=== PATIENT | female | born 1945 | race Caucasian/White ===

== ENCOUNTER 2022-11-23 07:07 | Emergency (ER) | payer MEDICARE, OTHER, SELFPAY ==
[2022-11-23] VITALS (11 sets, daily range): BP systolic 144–181; BP diastolic 68–88; PULSE 61–85; RESP 14–20; TEMP 36.9; O2SAT 98–100
--- NOTE | ~2022-11-23 | XR_ITS ---
Clinical Indication: Shortness of breath PA and lateral views of the chest: Comparison: None Findings: The lungs are clear, without evidence of focal consolidation or pleural effusion. COPD zuri eduar noted. Cardiomediastinal silhouette is within normal limits. Bones and soft tissues are unremarka ble. Impression: COPD. Clear lungs. Reviewed, dictated and finalized at location . Impression: COPD. Clear lungs.
--- NOTE | 2022-11-23 07:17 | ECG_ITS ---
Measurements Intervals [place] Rate: 64 P: 77 HI: 204 QRS: 81 QRSD: 86 T: 76 QT: 380 QTc: 394 Interpretive Statements SINUS RHYTHM WITH OCCASIONAL ECTOPIC PREMATURE COMPLEXES ABNORMAL ECG NO PREVIOUS ECG AVAILABLE FOR COMPARISON Electronically Signed On 11-23-2022 10:21:01 CDT by Elmo Rivas M.D.
--- NOTE | 2022-11-23 07:17 | ED.GENADULT ---
HPI - General Adult General Chief complaint: Asthma Stated complaint: Asthma Source: patient History of Present Illness HPI narrative: 77-year-old female presenting with shortness of breath and chest pain. Patient states her symptoms started last night. She describes her symptoms as intermittent right-sided chest pain as well as midsternal burning . She also states she has asthma And believesi she is in an asthma flare. She denies any recent illnesses or trauma. Onset (ago): hour(s) Location: chest Quality: burning and sharp Related Data Home Medications Medication Instructions Recorded Confirmed Serevent 50 mcg inhalation BID 11/23/22 11/23/22 Ventolin HFA 90 mcg inhalation DIRECTED 11/23/22 11/23/22 cefuroxime axetil 500 mg tablet 500 mg PO DAILY 11/23/22 11/23/22 methylprednisolone 4 mg PO DIRECTED 11/23/22 11/23/22 Allergies Allergy/AdvReac Type Severity Reaction Status Date / Time acetaminophen [From Vicodin] Allergy Unknown Verified 11/23/22 07:25 amoxicillin [From Augmentin] Allergy Unknown Verified 11/23/22 07:25 cephalexin [From Keflex] Allergy Unknown Verified 11/23/22 07:26 clavulanic acid Allergy Unknown Verified 11/23/22 07:25 [From Augmentin] erythromycin base Allergy Unknown Verified 11/23/22 07:25 fluticasone Allergy Unknown Verified 11/23/22 07:27 [From Advair Diskus] hydrocodone [From Vicodin] Allergy Unknown Verified 11/23/22 07:25 meperidine [From Demerol] Allergy Unknown Verified 11/23/22 07:26 salmeterol Allergy Unknown Verified 11/23/22 07:27 [From Advair Diskus] tramadol Allergy Unknown Verified 11/23/22 07:25 Exam Const: General: healthy appearing and no acute distress HENMT: Head: normal to inspection Face/Nose/Sinus: Normal external nose present Mouth: Yes lip normal Eyes: Conjunctivae: conjunctivae normal EOM: EOMs intact bilaterally Neck: Neck: normal visual inspection and no meningeal signs Chest: Chest palpation & inspection: normal inspection of the chest and no tenderness Resp: Effort & Inspection: normal respiratory effort Auscultation: clear to auscultation bilaterally Other: clear lung sounds to auscultation. No increased work of breathing. Satting well in room air. Cardio: Rate: regular rate Rhythm: regular rhythm GI: GI Palp: No Guarding due to palpation present (GI) and No Rigid due to palpation Back/Spine/Pelvis: Back: no CVA tenderness Cervical Spine: No collar present Skin: General skin exam: normal color and no pallor Neuro: General: patient oriented x3 Speech: normal speech Extrem: General: normal to inspection and no clubbing, cyanosis or edema Psych: Mental Status: mental status grossly normal Affect: normal affect Course Vital Signs Vital signs: Vital Signs Temperature 36.9 C 11/23/22 07:10 Pulse Rate 67 11/23/22 07:10 Respiratory Rate 16 11/23/22 07:10 Blood Pressure 181/68 H 11/23/22 07:10 Pulse Oximetry 100 11/23/22 07:10 Oxygen Delivery Room Air 11/23/22 07:10 Temperature 36.9 C 11/23/22 07:10 Pulse Rate 64 11/23/22 07:59 Respiratory Rate 14 11/23/22 07:59 Blood Pressure 181/68 H 11/23/22 07:10 Pulse Oximetry 100 11/23/22 07:59 Oxygen Delivery Room Air 11/23/22 07:10 Medical Decision Making MDM Narrative Medical decision making narrative: Differential diagnosis includes but not limited to ACS versus dissection versus pneumothorax versus pneumonia versus asthma exacerbation versus P versus GERD. Will evaluate with labs and imaging. Will administer nebulized albuterol and IV Pepcid. Reassuring workup. Negative troponin. Negative D-dimer. No emergent laboratory derangements. Mild dehydration on lab work. The patient did receive IV fluids. Upon my review, no acute pathological findings on chest x-ray. my interpretation of EKG: Sinus rhythm at a rate of 64 beats per minute. Normal axis with appropriate intervals. No ST segment elevation
[2022-11-23 07:33] LABS: Basophils Absolute Auto 0.02 K/mm3 (0.00-0.10); Basophils Percent Auto 0.5 % (0.0-1.0); Hematocrit 35.6 % (35.0-42.0); Hemoglobin 12.1 g/dL (11.7-13.8); Immature Granulocyte Absolute 0.02 K/mm3 (0.00-0.00); Immature Granulocyte Percent A 0.5 % (0.0-0.0); Lymphocytes Absolute Auto 1.09 K/mm3 (1.10-4.50); Lymphocytes Percent Auto 27.2 % (18.0-42.0); Mean Corpuscular Hemoglobin 31.6 pg (27.0-31.0); Mean Platelet Volume 10.6 fl (9.2-11.8); Monocytes Absolute Auto 0.47 K/mm3 (0.10-0.90); Monocytes Percent Auto 11.7 % (2.0-11.0); Neutrophils Absolute Auto 2.2 K/mm3 (1.7-7.2); Neutrophils Percent Auto 55.1 % (50.0-70.0); Platelet Count Result 211 K/mm3 (150-420); Red Blood Count 3.83 M/mm3 (4.20-5.40); Red Cell Distribution Width 12.2 % (11.6-14.4)
[2022-11-23] MEDS: ALBUTEROL SULFATE NEB 2.5 MG/3 ML INH 5 MG INHALATION (07:56)
[2022-11-23 08:06] LABS: Alanine Aminotransferase 24 U/L (14-59); Albumin Level 3.7 g/dL (3.4-5.0); Alkaline Phosphatase 104 U/L (46-116); Anion Gap 10 mmol/L (8-16); Aspartate Amino Transferase 13 U/L (15-37); Bilirubin,Total 0.7 mg/dL (0.00-1.00); Blood Urea Nitrogen 25 mg/dL (7-18); Calcium 9.9 mg/dL (8.5-10.1); Carbon Dioxide 26 mmol/L (21-32); Chloride 106 mmol/L (98-108); Estimated CRCL calculation 38 ml/min; Estimated Glomerular Filt Rate 52; Glucose 95 mg/dL (70-99); Magnesium 2.2 mg/dL (1.8-2.4); Osmolality Calculated 298 mOsm/kg (285-295); Sodium 142 mmol/L (136-145); Total Protein 7.2 g/dL (6.4-8.2); Troponin I 7.1 ng/L (0.00-60.4)
[2022-11-23 08:06] LABS: D Dimer 0.19 mg/L (0.19-0.50)
[2022-11-23] MEDS: FAMOTIDINE 20 MG TABLET PO (08:06)
[2022-11-23 08:08] LABS: NT Pro B Type Natriuretic Pept 67 pg/mL (0-450)
[2022-11-23] MEDS: SODIUM CHLORIDE 0.9% IV 1,000 ML 999 ML IV CONT (08:21)
--- NOTE | 2022-11-23 08:28 | PC.NURSE ---
PT IS SITTING UP ON STRETCHER TALKING WITH FAMILY. PT REPORTS SHE IS COUGHING UP THICK WHITISH SPUTUM POST NEB TX. LUNGS CTA ON ASSESSMENT. PT DENIES ANY SOB AT THIS TIME. VSS PER MONITOR. IVF INFUSING ORDERED WITHOUT DIFFICULTY. NAD NOTED. WILL CONTINUE TO MONITOR.
== END 2022-11-23 09:07 | disposition home or self-care (01) ==
PROVIDERS: Emergency Provider Emergency Medicine; PCP Physician Assistant
DX: K21.9 Gastro-esophageal reflux disease without esophagitis (principal); E86.0 Dehydration; J45.909 Unspecified asthma, uncomplicated; Z79.899 Other long term (current) drug therapy
CPT/HCPCS: 36415; 71046; 80053; 83735; 83880; 84443; 84484; 85025; 85380; 93005; 94640; 99284; A9270; J7030

== ENCOUNTER 2023-01-05 07:08 | Emergency (ER) | payer MEDICARE, OTHER, SELFPAY ==
--- NOTE | ~2023-01-05 | CT_ITS ---
EXAMINATION: CT chest abdomen pelvis w con DATE: 01/05/2023 08:18 INDICATION: Chest and abdominal pain TECHNIQUE: Transaxial computed tomographic images of the chest, abdomen, and pelvis were obtained aft er the administration of 100 cc of Omnipaque 350 intravenous contrast. The dose-length product (DLP) was 277.86 mGy-cm. Automated exposure control and iterative reconstruction technique were employed. COMPARISON: None FINDINGS: CHEST CT: There is a 4 mm nodule of the right upper lobe. The lungs are free of acute opacities. No pleural eff usion or pneumothorax. No pathologically enlarged thoracic lymph nodes are identified. The heart size is normal. There is calcified coronary artery atherosclerosis. There is mild thoracic spondylosis. ABDOMEN/PELVIS CT: The liver is diffusely low in attenuation when compared with the spleen, consistent with hepatic stea tosis. The spleen, pancreas, gallbladder, and adrenal glands are normal. The left kidney is absent. T he right kidney is unremarkable. No pathologically enlarged abdominal or pelvic lymph nodes are ident ified. No free intraperitoneal gas or evidence of bowel obstruction. There is a small umbilical herni a containing fat. There is moderate lumbar spondylosis. IMPRESSION: 1. No CT correlate for the patient's symptoms. 2. 4 mm nodule of the right upper lobe. Consider follow-up low-dose chest CT in 12 months. Reviewed, dictated and finalized at location L.
[2023-01-05 07:18] VITALS: BP 172/79; PULSE 76; RESP 20; TEMP 37; O2SAT 100
--- NOTE | 2023-01-05 07:19 | ECG_ITS ---
Measurements Intervals [place] Rate: 70 P: 71 MS: 216 QRS: 77 QRSD: 85 T: 68 QT: 370 QTc: 402 Interpretive Statements SINUS RHYTHM WITH FIRST DEGREE AV BLOCK LEFT VENTRICULAR HYPERTROPHY AND ST-T CHANGE MINIMAL Q WAVES- ANTEROLAT/INF LEADS BASELINE ARTIFACT- I, II, III, AVR, AVL BORDERLINE ECG COMPARED TO ECG 11/23/2022 07:48:00 FIRST DEGREE AV BLOCK NOW PRESENT LEFT VENTRICULAR HYPERTROPHY NOW PRESENT Electronically Signed On 01-05-2023 8:00:33 CDT by Ray Adams D.O.
--- NOTE | 2023-01-05 07:21 | ED.ABDPAIN ---
HPI - Abdominal Pain General Chief Complaint: Chest Pain Stated Complaint: GERD Time Seen by Provider: 01/05/23 07:19 History of Present Illness HPI narrative: Pt presents with a feeling of acid reflux into chest for a couple of months and getting worse. Pt has not seen Gi and has been started on pepcid with no relief. Pt sasy she feels like her heart is punding in her chest and throat and feels like her esophagus is narrowing from the acid. Pt clifford seen her P)CP but not GO or cardiology. Related Data Home Medications Medication Instructions Recorded Confirmed Serevent 50 mcg inhalation BID 11/23/22 01/05/23 Ventolin HFA 90 mcg inhalation DIRECTED 11/23/22 01/05/23 cefuroxime axetil 500 mg tablet 500 mg PO DAILY 11/23/22 01/05/23 methylprednisolone 4 mg PO DIRECTED 11/23/22 01/05/23 Allergies Allergy/AdvReac Type Severity Reaction Status Date / Time acetaminophen [From Vicodin] Allergy Unknown Verified 01/05/23 07:22 amoxicillin [From Augmentin] Allergy Unknown Verified 01/05/23 07:22 cephalexin [From Keflex] Allergy Unknown Verified 01/05/23 07:22 clavulanic acid Allergy Unknown Verified 01/05/23 07:22 [From Augmentin] erythromycin base Allergy Unknown Verified 01/05/23 07:22 fluticasone Allergy Unknown Verified 01/05/23 07:22 [From Advair Diskus] hydrocodone [From Vicodin] Allergy Unknown Verified 01/05/23 07:22 meperidine [From Demerol] Allergy Unknown Verified 01/05/23 07:22 salmeterol Allergy Unknown Verified 01/05/23 07:22 [From Advair Diskus] tramadol Allergy Unknown Verified 01/05/23 07:22 Review of Systems Review of Systems: All systems reviewed & are unremarkable except as noted in HPI and below Exam Const: General: healthy appearing Nutritional Appearance: well nourished Orientation/consciousness: patient oriented x3 Limitations: no limitations HENMT: Mouth: Yes Normal oral and palatal mucosa present Throat: posterior oropharynx normal Neck: Neck: normal visual inspection, no lymphadenopathy and no meningeal signs Other: no bruit Resp: Effort & Inspection: normal respiratory effort Auscultation: clear to auscultation bilaterally Cardio: Rate: regular rate Rhythm: regular rhythm GI: GI Palp: Yes Soft to palpation and No Tenderness to palpation present (GI) Auscultation: normal bowel sounds Skin: General skin exam: normal color Rashes: no rashes Neuro: General: patient oriented x3, moves all extremities, no meningeal signs and no focal motor deficits Speech: normal speech Extrem: General: normal to inspection and no clubbing, cyanosis or edema Psych: Mental Status: mental status grossly normal Affect: normal affect Attitude: cooperative Course Vital Signs Vital signs: Vital Signs Temperature 98.6 F 01/05/23 07:18 Pulse Rate 76 01/05/23 07:18 Respiratory Rate 20 01/05/23 07:18 Blood Pressure 172/79 H 01/05/23 07:18 Pulse Oximetry 100 01/05/23 07:18 Temperature 98.6 F 01/05/23 07:18 Pulse Rate 76 01/05/23 07:18 Respiratory Rate 20 01/05/23 07:18 Blood Pressure 172/79 H 01/05/23 07:18 Pulse Oximetry 100 01/05/23 07:25 Oxygen Delivery Room Air 01/05/23 07:25 MDM - Abdominal Pain MDM Narrative Medical decision making narrative: Pt presents with GERD like symptoms but has not been scoped or seen GI. Will rule out cardiac and CT chest and abd pelvis to make sure there is nothing life threatening. Lab Data Attestation: I reviewed the patient's lab results. 01/05/23 07:28 01/05/23 07:28 Labs: Lab Results 01/05/23 Range/Units 07:28 WBC 4.2 L (4.8-10.8) K/mm3 RBC 3.87 L (4.20-5.40) M/mm3 Hgb 12.2 (11.7-13.8) g/dL Hct 36.3 (35.0-42.0) % MCV 93.8 (78.0-102.0) fL MCH 31.5 H (27.0-31.0) pg MCHC 33.6 (32.0-36.0) g/dL RDW 12.3 (11.6-14.4) % Plt Count 210 (150-420) K/mm3 MPV 11.2 (9.2-11.8) fl Immature Gran % (Auto) 0.2 H (0.0-0.0) % Neut
[2023-01-05 07:25] VITALS: O2SAT 100
[2023-01-05 07:33] LABS: Basophils Absolute Auto 0.03 K/mm3 (0.00-0.10); Basophils Percent Auto 0.7 % (0.0-1.0); Eosinophils Absolute Auto 0.16 K/mm3 (0.02-0.50); Eosinophils Percent Auto 3.8 % (1.0-6.0); Hematocrit 36.3 % (35.0-42.0); Hemoglobin 12.2 g/dL (11.7-13.8); Immature Granulocyte Absolute 0.01 K/mm3 (0.00-0.00); Immature Granulocyte Percent A 0.2 % (0.0-0.0); Lymphocytes Absolute Auto 0.93 K/mm3 (1.10-4.50); Lymphocytes Percent Auto 22.1 % (18.0-42.0); Mean Corpuscular HGB Conc 33.6 g/dL (32.0-36.0); Mean Corpuscular Hemoglobin 31.5 pg (27.0-31.0); Mean Corpuscular Volume 93.8 fL (78.0-102.0); Mean Platelet Volume 11.2 fl (9.2-11.8); Monocytes Absolute Auto 0.51 K/mm3 (0.10-0.90); Monocytes Percent Auto 12.1 % (2.0-11.0); Neutrophils Absolute Auto 2.6 K/mm3 (1.7-7.2); Neutrophils Percent Auto 61.1 % (50.0-70.0); Platelet Count Result 210 K/mm3 (150-420); Red Blood Count 3.87 M/mm3 (4.20-5.40); Red Cell Distribution Width 12.3 % (11.6-14.4); White Blood Count 4.2 K/mm3 (4.8-10.8)
[2023-01-05 07:53] LABS: Alanine Aminotransferase 15 U/L (14-59); Albumin Level 3.8 g/dL (3.4-5.0); Alkaline Phosphatase 95 U/L (46-116); Anion Gap 11 mmol/L (8-16); Aspartate Amino Transferase 13 U/L (15-37); Bilirubin,Total 0.7 mg/dL (0.00-1.00); Blood Urea Nitrogen 19 mg/dL (7-18); Calcium 9.9 mg/dL (8.5-10.1); Carbon Dioxide 25 mmol/L (21-32); Chloride 104 mmol/L (98-108); Estimated CRCL calculation 42 ml/min; Estimated Glomerular Filt Rate > 60; Glucose 99 mg/dL (70-99); Lipase 47 U/L (16-77); Osmolality Calculated 292 mOsm/kg (285-295); Sodium 140 mmol/L (136-145); Total Protein 7.3 g/dL (6.4-8.2); Troponin I 6.5 ng/L (0.00-60.4)
[2023-01-05 08:56] VITALS: BP 166/81; PULSE 79; RESP 14; O2SAT 98
== END 2023-01-05 09:05 | disposition home or self-care (01) ==
PROVIDERS: Emergency Provider Emergency Medicine; PCP Physician Assistant
DX: K21.9 Gastro-esophageal reflux disease without esophagitis (principal); Z79.899 Other long term (current) drug therapy
CPT/HCPCS: 36415; 71260; 74177; 80053; 83690; 84484; 85025; 93005; 99284; Q9967

== ENCOUNTER 2023-01-08 12:27 | Outpatient (CLI) | payer MEDICARE, SELFPAY ==
[2023-01-08 12:43] LABS: Basophils Absolute Auto 0.03 K/mm3 (0.00-0.10); Basophils Percent Auto 0.6 % (0.0-1.0); Eosinophils Absolute Auto 0.19 K/mm3 (0.02-0.50); Eosinophils Percent Auto 3.5 % (1.0-6.0); Hemoglobin 12.2 g/dL (11.7-13.8); Immature Granulocyte Absolute 0.01 K/mm3 (0.00-0.00); Immature Granulocyte Percent A 0.2 % (0.0-0.0); Lymphocytes Absolute Auto 1.13 K/mm3 (1.10-4.50); Lymphocytes Percent Auto 20.7 % (18.0-42.0); Mean Corpuscular Hemoglobin 31.2 pg (27.0-31.0); Mean Corpuscular Volume 94.6 fL (78.0-102.0); Mean Platelet Volume 10.8 fl (9.2-11.8); Monocytes Absolute Auto 0.58 K/mm3 (0.10-0.90); Monocytes Percent Auto 10.6 % (2.0-11.0); Neutrophils Absolute Auto 3.5 K/mm3 (1.7-7.2); Neutrophils Percent Auto 64.4 % (50.0-70.0); Platelet Count Result 222 K/mm3 (150-420); Red Blood Count 3.91 M/mm3 (4.20-5.40); Red Cell Distribution Width 12.2 % (11.6-14.4); White Blood Count 5.5 K/mm3 (4.8-10.8)
[2023-01-08 13:32] LABS: Alanine Aminotransferase 22 U/L (14-59); Albumin Level 3.9 g/dL (3.4-5.0); Alkaline Phosphatase 104 U/L (46-116); Anion Gap 11 mmol/L (8-16); Aspartate Amino Transferase 13 U/L (15-37); Bilirubin,Total 0.5 mg/dL (0.00-1.00); Blood Urea Nitrogen 23 mg/dL (7-18); Calcium 10.1 mg/dL (8.5-10.1); Carbon Dioxide 25 mmol/L (21-32); Chloride 105 mmol/L (98-108); Estimated Glomerular Filt Rate 52; Glucose 100 mg/dL (70-99); Osmolality Calculated 295 mOsm/kg (285-295); Potassium 4.3 mmol/L (3.5-5.1); Sodium 141 mmol/L (136-145); Total Protein 7.1 g/dL (6.4-8.2)
== END 2023-01-08 12:28 | disposition home or self-care (01) ==
LOC: CHSLAB 12:32
PROVIDERS: PCP Family Medicine; Visit Provider Family Medicine
DX: Z52.4 Kidney donor (principal); K21.00 Gastro-esophageal reflux disease with esophagitis, without bleeding
CPT/HCPCS: 36415; 80053; 85025

== ENCOUNTER 2025-02-16 10:33 | Outpatient (CLI) | payer MEDICARE, OTHER, SELFPAY ==
[2025-02-16 10:49] LABS: Hematocrit 34.3 % (35.0-42.0); Hemoglobin 11.3 g/dL (11.7-13.8); Immature Granulocyte Percent A 0.3 % (0.0-0.0); Lymphocytes Absolute Auto 1.09 K/mm3 (1.10-4.50); Mean Corpuscular HGB Conc 32.9 g/dL (32-36); Mean Corpuscular Hemoglobin 31.6 pg (27.0-31.0); Mean Corpuscular Volume 95.8 fL (78.0-102.0); Nucleated Red Blood Cells Absolute Auto 0.00 K/mm3 (0.00-0.00); Nucleated Red Blood Cells Perc 0.0 % (0-0.0); Platelet Count Result 245 K/mm3 (150-420); Red Blood Count 3.58 M/mm3 (4.20-5.40); White Blood Count 6.1 K/mm3 (4.8-10.8)
--- OUTSIDE RECORDS SUMMARY | 2025-02-16 11:05 | XMS_ITS | Data Portability ---
Author Organization NOAH CLINTDrayl Gaffney Address [address] [facility] [place] [address] Care Team Providers Care Charging Plug Placer Name Role Phone BRENNAN CARLIN Primary Care Provider [phone] Assessment No assessment recorded. Plan of Treatment Reminders Order Date Submit Date Provider Last Modified By Organization Details Last Modified Time Details Appointments None recorded. Lab CMP, serum or plasma 2022 023 J[facility], [address] [facility], [facility] [address], [place], [address], 3 06:13:29 lipid panel, serum 2022 023 [facility], [address] [facility], [facility] [address], [place], [address], 3 06:13:29 HbA1c (hemoglobi n A1c), blood 2022 023 JADON In-Office Order, Internal Use Only DO Not Attach Compendium DO Not Attach Compendium, Do Not Delete/merge, [id number] 3 10:51:10 CBC 2021 022 J[facility], [address], [address], [place], [address], 2 09:12:18 CMP, serum or plasma 2021 022 J[facility], [address], [address], [place], [address], 2 09:12:17 lipid panel, serum 2021 022 [facility], [address], [address], [place], [address], 2 09:12:18 CMP, serum or plasma 2020 021 [facility], [address] [facility], [address], [place], [address], 1 06:14:02 CBC 2020 021 [facility], [address] [facility] [address], [place], [address], 1 06:14:03 TSH, serum or plasma 2020 021 [facility], [address] [facility], [address], [place], [address], 1 06:14:05 lipid panel, serum 2020 021 J[facility], [address] [facility], [address], [place], [address], 1 06:14:[address] referral 2022 023 dtbib Marr MD, [address] [place], [address], 3 09:54:27 Procedures None recorded. Surgeries None recorded. Imaging None recorded. Medication Orders Serevent Diskus 50 mcg/dose powder for inhalation 2022 023 JADON [facility], [facility], [address], 3 10:36:23 albuterol sulfate HFA 90 mcg/actuat ion aerosol inhaler 2022 023 [facility], [address] [place], [address], 3 10:41:24 Serevent Diskus 50 mcg/dose powder for inhalation 2022 023 [facility] [place], [address] [place], [address], 3 10:41:23 diazepam 2 mg tablet 2022 023 [facility] [place], [address] [place], [address], 3 10:23:51 Serevent Diskus 50 mcg/dose powder for inhalation 2021 022 JADON [facility], [address] [place] [address], [address], 2 11:23:01 Ventolin HFA 90 mcg/actuat ion aerosol inhaler 2021 022 J[facility], [address] [place] [address], [address], 2 11:22:58 diazepam 2 mg tablet [address] [facility], [address] [place] [address], [address], 3 10:23:51 Ventolin HFA 90 mcg/actuat ion aerosol inhaler 2020 021 [facility], [address] [place] [address], [address], 1 10:38:35 diazepam 2 mg tablet 2020 021 [facility], [address] [place] [address], [address], 3 10:23:51 Serevent Diskus 50 mcg/dose powder for inhalation 2020 021 INTERFACE [facility], [address] [place] [address], [address], 10:38:30 Patient TargetsNo targets recorded. 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 Referral for At ypical chest pain Referring Physician: Brennan Carlin, Family Medicine, Encounter Date: 01/04/2023 Results Created Date Observation Date Name Description Value Unit Range Abnormal Flag Note LastModifiedBy Organization Detail LastModifiedTime 04/23/1904/24/2020 CMP, serum or plasm a glucose 93 mg/dL 65-99 Not Available [facility] ([facility]) [address] [place], [address], 04/27/2020 06:14:02 04/23/1904/24/2020 CMP, serum or plasm a BUN 21 mg/dL 8-27 Not Available [facility] ([facility]) [address] [place], [address], 04/27/2020 06:14:02 04/23/1904/24/2020 CMP, serum or plasm a creatinine 0.82 mg/dL 0.57-1 .00 Not Available [facility] ([facility]) [address] [place], [address], 04/27/2020 06:14:02 04/23/1904/24/2020 CMP, serum or plasm a eGFR if nonafricn AM 71 mL/mi n/1.7 3 >59 Not Available [facility] ([facility]) [address] [facility] [place], [address], 04/27/2020 06:14:02 04/23/19 21 04/24/2020 CMP, serum or plasm a eGFR if africn AM 82 mL/mi n/1.7 3 >59 Not Available [facility] ([facility]) [address] [facility] [place], [address], 04/27/2020 06:14:02 04/23/19 21 04/24/2020 CMP, serum or plasm a BUN/creatini ne ratio 26 12-28 Not Available [facility] ([facility]) [address] [facility] [place], [address], 04/27/2020 06:14:02 04/23/19 21 04/24/2020 CMP, serum or plasm a sodium 141 mmol/ L 134-14 4 Not Available [facility] ([facility]) [address] [facility] [place], [address], 04/27/2020 06:14:02 04/23/1904/24/2020 CMP, serum or plasm a potassium 5.0 mmol/ L 3.5-5. 2 Not Available [facility] ([facility]) [address] [facility] [place], [address], 04/27/2020 06:14:02 04/23/1904/24/2020 CMP, serum or plasm a chloride 106 mmol/ L 96-106 Not Available [facility] ([facility]) [address] [facility] [place], [address], 04/27/2020 06:14:02 04/23/1904/24/2020 CMP, serum or plasm a carbon dioxide, total 23 mmol/ L 20-29 Not Available [facility] ([facility]) [address] [facility] [place], [address], 04/27/2020 06:14:02 04/23/1904/24/2020 CMP, serum or plasm a calcium 10.3 mg/dL 8.7-10 .3 Not Available [facility] ([facility]) [address] [facility] [place], [address], 04/27/2020 06:14:02 04/23/1904/24/2020 CMP, serum or plasm a protein, total 7.0 g/dL 6.0-8. 5 Not Available [facility] ([facility]) [address] [facility] [place], [address], 04/27/2020 06:14:02 04/23/1904/24/2020 CMP, serum or plasm a albumin 4.4 g/dL 3.7-4. 7 Not Available [facility] ([facility]) [address] [facility] [place], [address], 04/27/2020 06:14:02 04/23/1904/24/2020 CMP, serum or plasm a globulin, total 2.6 g/dL 1.5-4. 5 Not Available [facility] ([facility]) [address] [facility] [place], [address], 04/27/2020 06:14:02 04/23/1904/24/2020 CMP, serum or plasm a A/G ratio 1.7 1.2-2. 2 Not Available [facility] ([facility]) [address] [place], [address], 04/27/2020 06:14:02 04/23/1904/24/2020 CMP, serum or plasm a bilirubin, total 0.5 mg/dL 0.0-1. 2 Not Available [facility] ([facility]) [address] [facility] [place], [address], 04/27/2020 06:14:02 04/23/1904/24/2020 CMP, serum or plasm a alkaline phosphatase 117 IU/L 39-117 Not Available [facility] ([facility]) [address] [place], [address], 04/27/2020 06:14:02 04/23/1904/24/2020 CMP, serum or plasm a AST (SGOT) 21 IU/L 0-40 Not Available [facility] ([facility]) [address] [place], [address], 04/27/2020 06:14:02 04/23/1904/24/2020 CMP, serum or plasm a ALT (SGPT) 23 IU/L 0-32 Not Available [facility] ([facility]) [address] [place], [address], 04/27/2020 06:14:02 04/23/1904/24/2020 CBC WBC 4.6 x10e3 /uL 3.4-10 .8 Not Available [facility] ([facility]) [address] [place], [address], 04/27/2020 06:14:03 04/23/1904/24/2020 CBC RBC 3.93 x10e6 /uL 3.77-5 .28 Not Available [facility] ([facility]) [address] [facility], [address], 04/27/2020 06:14:03 04/23/1904/24/2020 CBC hemoglobin 12.4 g/dL 11.1-1 5.9 Not Available [facility] ([facility]) [address] [facility], [address], 04/27/2020 06:14:03 04/23/1904/24/2020 CBC hematocrit 35.9 % 34.0-4 6.6 Not Available [facility] ([facility]) [address] [facility], [address], 04/27/2020 06:14:03 04/23/19 21 04/24/2020 CBC MCV 91 fL 79-97 Not Available [facility] ([facility]) [address] [facility], [place], [address], 04/27/2020 06:14:03 04/23/19 21 04/24/2020 CBC MCH 31.6 pg 26.6-3 3.0 Not Available [facility] ([facility]) [address] [facility], [place], [address], 04/27/2020 06:14:03 04/23/19 21 04/24/2020 CBC MCHC 34.5 g/dL 31.5-3 5.7 Not Available [facility] ([facility]) [address] [facility], [place], [address], 04/27/2020 06:14:03 04/23/19 21 04/24/2020 CBC RDW 12.2 % 11.7-1 5.4 Not Available [facility] ([facility]) [address] [facility], [place], [address], 04/27/2020 06:14:03 04/23/1904/24/2020 CBC platelets 194 x10e3 /uL 150-45 0 Not Available [facility] ([facility]) [address] [facility], [place], [address], 04/27/2020 06:14:03 04/23/1904/24/2020 CBC NRBC BUSINESS TAXES SPECIALIST Not Available [facility] ([facility]) [address] [facility], [place], [address], 04/27/2020 06:14:03 04/23/1904/24/2020 lipid panel , serum cholesterol, total 178 mg/dL 100-19 9 Not Available [facility] ([facility]) [address] [facility], [place], [address], 04/27/2020 06:14:04 04/23/19 21 04/24/2020 lipid panel , serum triglyceride s 85 mg/dL 0-149 Not Available [facility] ([facility]) [address] [place], [address], 04/27/2020 06:14:04 04/23/19 21 04/24/2020 lipid panel , serum HDL cholesterol 63 mg/dL >39 Not Available [facility] ([facility]) [address] [place], [address], 04/27/2020 06:14:04 04/23/19 21 04/24/2020 lipid panel , serum VLDL cholesterol dax 16 mg/dL 5-40 Not Available [facility] ([facility]) [address] [place], [address], 04/27/2020 06:14:04 04/23/1904/24/2020 lipid panel , serum LDL [facility] mg/dL 0-99 Not Available [facility] ([facility]) [address] [place], [address], 04/27/2020 06:14:04 04/23/1904/24/2020 lipid panel , serum comment: BUSINESS TAXES SPECIALIST Not Available [facility] ([facility]) [address] [facility], [place], [address], 04/27/2020 06:14:04 04/23/1904/26/2020 TSH, serum or plasm a TSH-icma 0.70 uu/mL Refer ence Range : Non-P regna nt Adult 0.450 -4.50 0 Pregn sofie First Trime ster 0.100 -4.00 0 Secon d Trime ster 0.200 -4.00 0 Third Trime ster 0.300 -4.50 0 Not Available [facility] [address] [place] [address], [address], 04/27/2020 06:14:05 04/23/1904/24/2020 cardi ovasc ular asses sment panel , serum interpretati on Note Suppl rick warren is avail able. Not Available [facility] ([facility]) [address] [facility] [place], [address], 04/27/2020 06:14:05 04/23/19 21 04/24/2020 cardi ovasc ular asses sment panel , serum pdf . Not Available [facility] ([facility]) [address] [facility] [place], [address], 04/27/2020 06:14:05 04/23/19 22 04/24/2021 COMP. METAB OLIC PANEL (14) glucose 92 mg/dL 65-99 Not Available [facility] ([facility]) [address] [facility] [place], [address], 04/24/2021 09:12:17 04/23/19 22 04/24/2021 COMP. METAB OLIC PANEL (14) BUN 19 mg/dL 8-27 Not Available [facility] ([facility]) [address] [facility] [place], [address], 04/24/2021 09:12:17 04/23/19 22 04/24/2021 COMP. METAB OLIC PANEL (14) creatinine 0.87 mg/dL 0.57-1 .00 Not Available [facility] ([facility]) [address] [facility] [place], [address], 04/24/2021 09:12:17 04/23/19 22 04/24/2021 COMP. METAB OLIC PANEL (14) eGFR if nonafricn AM 65 mL/mi n/1.7 3 >59 Not Available [facility] ([facility]) [address] [facility] [place], [address], 04/24/2021 09:12:17 04/23/19 22 04/24/2021 COMP. METAB OLIC PANEL (14) eGFR if africn AM 75 mL/mi n/1.7 3 >59 In accor dance with recom menda tions from the NKF-A SN Task force , [facility] is in the proce ss of updat ing its eGFR calcu latio n to the 2020 CKD-E PI creat inine equat ion that estim ates kidne y funct ion witho ut a race varia ble. Not Available [facility] ([facility]) [address] [facility], [place], [address], 04/24/2021 09:12:17 04/23/19 22 04/24/2021 COMP. METAB OLIC PANEL (14) BUN/creatini ne ratio 04-15 Not Available [facility] ([facility]) [address] [facility], [place], [address], 04/24/2021 09:12:17 04/23/19 22 04/24/2021 COMP. METAB OLIC PANEL (14) sodium 141 mmol/ L 134-14 4 Not Available [facility] ([facility]) [address] [facility], [place], [address], 04/24/2021 09:12:17 04/23/19 22 04/24/2021 COMP. METAB OLIC PANEL (14) potassium 4.5 mmol/ L 3.5-5. 2 Not Available [facility] ([facility]) [address] [facility], [place], [address], 04/24/2021 09:12:17 04/23/19 22 04/24/2021 COMP. METAB OLIC PANEL (14) chloride 104 mmol/ L 96-106 Not Available [facility] ([facility]) [address] [facility] [place], [address], 04/24/2021 09:12:17 04/23/19 22 04/24/2021 COMP. METAB OLIC PANEL (14) carbon dioxide, total 23 mmol/ L 20-29 Not Available [facility] ([facility]) [address] [place], [address], 04/24/2021 09:12:17 04/23/19 22 04/24/2021 COMP. METAB OLIC PANEL (14) calcium 10.2 mg/dL 8.7-10 .3 Not Available [facility] ([facility]) [address] [place], [address], 04/24/2021 09:12:17 04/23/19 22 04/24/2021 COMP. METAB OLIC PANEL (14) protein, total 7.0 g/dL 6.0-8. 5 Not Available [facility] ([facility]) [address] [place], [address], 04/24/2021 09:12:17 04/23/19 22 04/24/2021 COMP. METAB OLIC PANEL (14) albumin 4.6 g/dL 3.7-4. 7 Not Available [facility] ([facility]) [address] [facility] [place], [address], 04/24/2021 09:12:17 04/23/19 22 04/24/2021 COMP. METAB OLIC PANEL (14) globulin, total 2.4 g/dL 1.5-4. 5 Not Available [facility] ([facility]) [address] [facility] [place], [address], 04/24/2021 09:12:17 04/23/19 22 04/24/2021 COMP. METAB OLIC PANEL (14) A/G ratio 1.9 1.2-2. 2 Not Available [facility] ([facility]) [address] [facility], [address], 04/24/2021 09:12:17 04/23/19 22 04/24/2021 COMP. METAB OLIC PANEL (14) bilirubin, total 0.6 mg/dL 0.0-1. 2 Not Available [facility] ([facility]) [address] [facility], [address], 04/24/2021 09:12:17 04/23/19 22 04/24/2021 COMP. METAB OLIC PANEL (14) alkaline phosphatase 109 IU/L 44-121 Ple ase note refer ence chantel krista kaiser e Not Available [facility] ([facility]) [address] [facility], [place], [address], 04/24/2021 09:12:17 04/23/19 22 04/24/2021 COMP. METAB OLIC PANEL (14) AST (SGOT) 20 IU/L 0-40 Not Available [facility] ([facility]) [address] [facility], [place], [address], 04/24/2021 09:12:17 04/23/19 22 04/24/2021 COMP. METAB OLIC PANEL (14) ALT (SGPT) 16 IU/L 0-32 Not Available [facility] ([facility]) [address] [facility], [place], [address], 04/24/2021 09:12:17 04/23/19 22 04/24/2021 CBC, PLATE LET, NO DIFFE RENTI AL WBC 6.2 x10e3 /uL 3.4-10 .8 Not Available [facility] ([facility]) [address] [facility], [place], [address], 04/24/2021 09:12:18 04/23/19 22 04/24/2021 CBC, PLATE LET, NO DIFFE RENTI AL RBC 4.06 x10e6 /uL 3.77-5 .28 Not Available [facility] ([facility]) [address] [facility], [place], [address], 04/24/2021 09:12:18 04/23/1904/24/2021 CBC, PLATE LET, NO DIFFE RENTI AL hemoglobin 12.4 g/dL 11.1-1 5.9 Not Available [facility] ([facility]) [address] [facility], [place], [address], 04/24/2021 09:12:18 04/23/1904/24/2021 CBC, PLATE LET, NO DIFFE RENTI AL hematocrit 37.3 % 34.0-4 6.6 Not Available [facility] ([facility]) [address] [facility], [place], [address], 04/24/2021 09:12:18 04/23/1904/24/2021 CBC, PLATE LET, NO DIFFE RENTI AL MCV 92 fL 79-97 Not Available [facility] ([facility]) [address] [facility], [place], [address], 04/24/2021 09:12:18 04/23/1904/24/2021 CBC, PLATE LET, NO DIFFE RENTI AL MCH 30.5 pg 26.6-3 3.0 Not Available [facility] ([facility]) [address] [facility], [place], [address], 04/24/2021 09:12:18 04/23/1904/24/2021 CBC, PLATE LET, NO DIFFE RENTI AL MCHC 33.2 g/dL 31.5-3 5.7 Not Available [facility] ([facility]) [address] [facility], [place], [address], 04/24/2021 09:12:18 04/23/1904/24/2021 CBC, PLATE LET, NO DIFFE RENTI AL RDW 12.6 % 11.7-1 5.4 Not Available [facility] ([facility]) [address] [facility], [place], [address], 04/24/2021 09:12:18 04/23/1904/24/2021 CBC, PLATE LET, NO DIFFE RENTI AL platelets 232 x10e3 /uL 150-45 0 Not Available [facility] ([facility]) [address] [facility], [place], [address], 04/24/2021 09:12:18 04/23/1904/24/2021 CBC, PLATE LET, NO DIFFE RENTI AL NRBC BUSINESS TAXES SPECIALIST Not Available [facility] ([facility]) [address] [place], [address], 04/24/2021 09:12:18 04/23/19 22 04/24/2021 LIPID PANEL cholesterol, total 204 mg/dL 100-19 9 above high normal Not Available [facility] ([facility]) [address] [place], [address], 04/24/2021 09:12:18 04/23/19 22 04/24/2021 LIPID PANEL triglyceride s 76 mg/dL 0-149 Not Available [facility] ([facility]) [address] [place], [address], 04/24/2021 09:12:18 04/23/19 22 04/24/2021 LIPID PANEL HDL cholesterol 70 mg/dL >39 Not Available [facility] ([facility]) [address] [place], [address], 04/24/2021 09:12:18 04/23/19 22 04/24/2021 LIPID PANEL VLDL cholesterol dax 14 mg/dL 5-40 Not Available [facility] ([facility]) [address] [place], [address], 04/24/2021 09:12:18 04/23/19 22 04/24/2021 LIPID PANEL LDL [facility] 120 mg/dL 0-99 above high normal Not Available [facility] ([facility]) [address] [place], [address], 04/24/2021 09:12:18 04/23/19 22 04/24/2021 LIPID PANEL comment: BUSINESS TAXES SPECIALIST Not Available [facility] ([facility]) [address] [place], [address], 04/24/2021 09:12:18 04/23/19 22 04/24/2021 CARDI OVASC ULAR REPOR T interpretati on Note Suppl ement al repor t is avail able. Not Available [facility] ([facility]) [address] [facility], [place], [address], 04/24/2021 09:12:19 04/23/19 22 04/24/2021 CARDI OVASC ULAR REPOR T pdf . Not Available [facility] ([facility]) [address] [facility], [place], [address], 04/24/2021 09:12:19 04/27/19 23 04/27/2022 LIPID PANEL cholesterol, total 210.4 mg/dL 140.0- 200.0 above high normal Not Available [facility] ([facility]) [address] [facility], [place], [address], 04/28/2022 06:13:29 04/27/19 23 04/27/2022 LIPID PANEL triglyceride s 96 mg/dL <=150 Not Available [facility] ([facility]) [address] [facility], [place], [address], 04/28/2022 06:13:29 04/27/19 23 04/27/2022 LIPID PANEL HDL cholesterol 70.3 mg/dL 40.0-1 00.0 Not Available [facility] ([facility]) [address] [facility], [place], [address], 04/28/2022 06:13:29 04/27/19 23 04/27/2022 LIPID PANEL VLDL cholesterol dax 19.20 mg/dL 5.00-4 0.00 Not Available [facility] ([facility]) [address] [facility] [place], [address], 04/28/2022 06:13:29 04/27/19 23 04/27/2022 LIPID PANEL LDL chol [facility] 123.2 Not Available [facility] ([facility] [address] [facility] [place], [address], 04/28/2022 06:13:29 04/27/19 23 04/27/2022 COMP. METAB OLIC PANEL (14) glucose 98 mg/dL 65-99 ANION GP 15.0 mmol/ L N OSMOL 282.0 mOsM/ L N REFER ENCE RANGE : 275.0 -301. 0 Not Available [facility] ([facility]) [address] [facility] [place], [address], 04/28/2022 06:13:29 04/27/1904/27/2022 COMP. METAB OLIC PANEL (14) BUN 23 mg/dL 8-26 Not Available [facility] ([facility]) [address] [facility] [place], [address], 04/28/2022 06:13:29 04/27/1904/27/2022 COMP. METAB OLIC PANEL (14) creatinine 0.82 mg/dL 0.50-1 .40 Not Available [facility] ([facility]) [address] [facility] [place], [address], 04/28/2022 06:13:29 04/27/19 23 04/27/2022 COMP. METAB OLIC PANEL (14) eGFR 74 mL/mi n/1.7 3 >=60 Not Available [facility] ([facility]) [address] [facility] [place], [address], 04/28/2022 06:13:29 04/27/1904/27/2022 COMP. METAB OLIC PANEL (14) BUN/creatini ne ratio 27.7 Not Available [facility] ([facility]) [address] [facility] [place], [address], 04/28/2022 06:13:29 04/27/1904/27/2022 COMP. METAB OLIC PANEL (14) sodium 139.3 mmol/ L 136.0- 144.0 Not Available [facility] ([facility]) [address] [facility] [place], [address], 04/28/2022 06:13:29 04/27/19 23 04/27/2022 COMP. METAB OLIC PANEL (14) potassium 4.8 mmol/ L 3.5-5. 3 Not Available [facility] ([facility]) [address] [facility] [place], [address], 04/28/2022 06:13:29 04/27/19 23 04/27/2022 COMP. METAB OLIC PANEL (14) chloride 104 mmol/ l 101-11 1 Not Available [facility] ([facility]) [address] [place] [address] [place], [place], [address], 04/28/2022 06:13:29 04/27/19 23 04/27/2022 COMP. METAB OLIC PANEL (14) carbon dioxide, total 26.0 mmol/ L 21.0-3 2.0 Not Available [facility] ([facility]) [address] [facility] [place], [address], 04/28/2022 06:13:29 04/27/19 23 04/27/2022 COMP. METAB OLIC PANEL (14) calcium 10.6 mg/dL 8.2-10 .0 above high normal Not Available [facility] ([facility]) [address] [facility] [place], [address], 04/28/2022 06:13:29 04/27/19 23 04/27/2022 COMP. METAB OLIC PANEL (14) protein, total 7.3 g/dL 6.7-8. 2 Not Available [facility] ([facility]) [address] [facility] [place], [address], 04/28/2022 06:13:29 04/27/1904/27/2022 COMP. METAB OLIC PANEL (14) albumin 4.6 g/dL 3.5-5. 5 Not Available [facility] ([facility]) [address] [facility], [address], 04/28/2022 06:13:29 04/27/19 23 04/27/2022 COMP. METAB OLIC PANEL (14) globulin, total 2.7 g/dL 1.5-4. 5 Not Available [facility] ([facility]) [address] [place], [address], 04/28/2022 06:13:29 04/27/19 23 04/27/2022 COMP. METAB OLIC PANEL (14) A/G ratio 1.7 Not Available [facility] ([facility]) [address] [place], [address], 04/28/2022 06:13:29 04/27/19 23 04/27/2022 COMP. METAB OLIC PANEL (14) bilirubin, total 0.6 mg/dL 0.0-1. 2 Not Available [facility] ([facility]) [address] [facility] [place], [address], 04/28/2022 06:13:29 04/27/19 23 04/27/2022 COMP. METAB OLIC PANEL (14) alkaline phosphatase 113.7 IU/L 42.0-1 21.0 Not Available [facility] ([facility]) [address] [place], [address], 04/28/2022 06:13:29 04/27/19 23 04/27/2022 COMP. METAB OLIC PANEL (14) AST (SGOT) 17.3 U/L 10.0-4 2.0 Not Available [facility] ([facility]) [address] [place], [address], 04/28/2022 06:13:29 04/27/19 23 04/27/2022 COMP. METAB OLIC PANEL (14) ALT (SGPT) 15.8 U/L 10.0-6 0.0 Not Available [facility] ([facility]) [address] [place], [place], [address], 04/28/2022 06:13:29 04/27/19 23 04/27/2022 CARDI OVASC ULAR REPOR T interpretati on Note Suppl ement al repor t is avail able. Not Available [facility] ([facility]) [address], [place], [address], 04/28/2022 06:13:30 04/27/19 23 04/27/2022 CARDI OVASC ULAR REPOR T pdf . Not Available [facility] ([facility]) [address], [place], [address], 04/28/2022 06:13:30 04/27/19 23 04/27/2022 HbA1c (hemo globi n A1c), blood HbA1c 5.9 Not Available In-Office Order Internal Use Only DO Not Attach Compendium DO Not Attach Compendium, Do Not Delete/merge, [id number] 04/27/2022 10:34:44 11/24/19 23 11/23/2022 XR, chest No observ ation record ed. [email or web address] [facility] [address] [place], [address], 11/23/2022 10:17:50 01/06/20 23 01/05/2023 CT, abdom en + pelvi s, w/ contr ast No observ ation record ed. [email or web address] [facility] [address] [place], [address], 01/05/2023 10:22:08 Result Notes None recorded. 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 Procedures Surgical History Date Name Laterality Status Provider Name and Address Organization Details Recorded Time 04/19/19 15 colonoscopy completed Shazia Mcleod MA [facility] 04/23/2020 09:56:21 Tonsillectomy completed Misa Bess MA [facility] 06/11/2014 10:46:13 Tubal Ligation completed Misa Bess MA [facility] 06/11/2014 10:46:13 Dilation and Curettage completed Misa Bess MA [facility] 06/11/2014 10:46:13 Other completed Misa Bess MA [facility] 05/07/2015 11:18:24 Imaging Results None recorded. Procedure Notes None recorded. Medical Equipment None Reported. Allergies Allergen ID Allergen Name Allergen Category Reaction Reaction Severity Criticality Documentation Date Start Date Code Code System Note Provider Name and Address Organization Details Recorded Time 364175 Keflex medicatio n irregular heart rate Not available Not available 04/25/2018 93900 7 RxNorm Kate Silva MA karo, [facility] 9 10:42:11 413878 fluticaso ne / salmetero l medicatio n Not available Not available Not available 04/28/2019 02579 5 RxNorm ROBERTO Bailon, [facility] 0 09:58:49 [id number] hydrocodo ne Not available Not available Not available Not available 11/08/2019 5489 RxNorm ROBERTO Rodriguez, [facility] 0 10:24:24 676863 propoxyph socorro medicatio n Not available Not available Not available 11/08/2019 8785 RxNorm Shazia Mcleod [place] karo, [place] - [facility] 0 10:24:24 014381 tramadol medicatio n Not available Not available Not available 11/08/2019 18662 RxNorm ROBERTO Rodriguez, [facility] 0 10:24:24 951559 sulfanila mide medicatio n Not available Not available Not available 11/08/2019 67435 RxNorm Shazia Mcleod MA null, [facility] 0 10:24:24 94686 Substance with sulfonami de structure and antibacte rial mechanism of action (substanc e) medicatio n other Not available Not available 06/11/2014 14206 8003 SNOMED Misaskyla Bess MA null, [facility] 5 10:46:13 93714 Darvocet- N medicatio n bradycard ia Not available Not available 07/01/2016 Georgia Bearden MA null, [facility] 7 11:25:30 Medications Name Sig Start Date Stop Date Status Note LastModified by Organization Details LastModified Time cefuroxime axetil 250 mg tablet 04/30 completed Not Available Not Available Not Available Lidocaine Viscous 2 % mucosal solution active Not Available Not Available Not Available ciprofloxac in 500 mg tablet Take 1 tablet every 12 hours by oral route for 10 days. 11/07 completed Not Available Not Available Not Available Serevent Diskus 50 mcg/dose powder for inhalation INHALE 1 PUFF BY MOUTH TWICE A DAY active Not Available Not Available No t Available amoxicillin 875 mg tablet 04/27 completed Not Available Not Available Not Available famotidine 20 mg tablet Take 1 tablet twice a day by oral route for 90 days. active Not Available Not Available No t Available prednisolon e acetate 1 % eye drops,suspe nsion 07/01 completed Not Available Not Available Not Available diazepam 2 mg tablet TAKE 1 TABLET BY MOUTH TWICE DAILY NEEDED 12/25 completed Not Available Not Available Not Available cephalexin 500 mg capsule Take 1 capsule every 8 hours by oral route for 10 days. 04/27 completed Not Available Not Available Not Available Advair Diskus 250 mcg-50 mcg/dose powder for inhalation Inhale 1 puff twice a day by inhalatio n route. 04/28 completed Not Available Not Available Not Available omeprazole 20 mg capsule,del ayed release Take 1 capsule every day by oral route for 90 days. active Not Available Not Available No t Available ergocalcife rol (vitamin D2) 1,250 mcg (50,000 unit) capsule 11/07 completed Not Available Not Available Not Available cefuroxime axetil 500 mg tablet Take 1 tablet twice a day by oral route for 10 days. 12/25 completed Not Available Not Available Not Available methylpredn isolone 4 mg tablets in a dose pack Take 1 dose pk by oral route as directed. 12/25 completed Not Available Not Available Not Available albuterol sulfate HFA 90 mcg/actuati on aerosol inhaler INHALE 2 PUFFS BY MOUTH EVERY FOUR HOURS active Not Available Not Available No t Available fluticasone propionate 50 mcg/actuati on nasal spray,suspe nsion 2011 active Not Available Not Available Not Avai lable amoxicillin 500 mg-potassiu m clavulanate 125 mg tablet Take 1 tablet 3 times a day by oral route for 10 days. 12/25 completed Not Available Not Available Not Available azithromyci n 500 mg tablet Take 1 tablet every day by oral route for 3 days. 11/07 completed Not Available Not Available Not Available Zostavax (PF) 19,400 unit/0.65 mL subcutaneou s suspension 2012 active Not Available Not Available Not Avai lable gatifloxaci n 0.5 % eye drops 07/01 completed Not Available Not Available Not Available Vitals Date Recorded Body height Body temperature Oxygen saturation Oxygen saturation in Arterial blood by Pulse oximetry Heart rate Body mass index (BMI) Body weight Systolic And Diastolic Provider Name and Address Organization Details Last Updated DateTime 1 170.18 cm 98.6 [degF] 98 % 98 % 75 /min 20.8 kg/m2 53238.7 9 g 148/80 mm[Hg] Shazia Mcleod [place] - [facility] 1 09:59:27 Date Recorded Body height Body mass index (BMI) Body weight Body temperature Oxygen saturation Oxygen saturation in Arterial blood by Pulse oximetry Heart rate Systolic And Diastolic Provider Name and Address Organization Details Last Updated DateTime 2 170.18 cm 20.5 kg/m2 38618.6 g 97.8 [degF] 100 % 100 % 81 /min 140/84 mm[Hg] Shazia Mcleod MA [facility] 2 10:30:45 Date Recorded Body weight Body height Body mass index (BMI) Oxygen saturation Oxygen saturation in Arterial blood by Pulse oximetry Heart rate Body temperature Systolic And Diastolic Provider Name and Address Organization Details Last Updated DateTime 3 62373.4 7 g 170.18 cm 20.6 kg/m2 99 % 99 % 78 /min 97.9 [degF] 150/78 mm[Hg] Misa pederson MA [facility] 3 10:18:24 Date Recorded Body height Body mass index (BMI) Body weight Respiratory rate Heart rate Oxygen saturation Oxygen saturation in Arterial blood by Pulse oximetry Systolic And Diastolic Provider Name and Address Organization Details Last Updated DateTime 3 170.18 cm 20.3 kg/m2 45864.5 2 g 16 /min 78 /min 98 % 98 % 169/85 mm[Hg] Radha Brody MA [facility] 3 10:25:31 Date Recorded Body height Body mass index (BMI) Body weight Respiratory rate Oxygen saturation Oxygen saturation in Arterial blood by Pulse oximetry Heart rate Systolic And Diastolic Provider Name and Address Organization Details Last Updated DateTime 3 170.18 cm 19.8 kg/m2 04670.7 4 g 16 /min 99 % 99 % 82 /min 149/85 mm[Hg] Radha Brody MA [facility] 3 14:32:27 Social History Question Answer Notes LastModified by Organizat ion Details LastModified Time Tobacco Smoking Status Never Smoker Misa Bess MA [facility], [facility] 06/11/2014 10:46:12 Are You Blind Or Do You Have Difficulty Seeing? Yes Glasses Information not available 04/27/2022 What Is Your Level Of Caffeine Consumption? None Information not available 04/25/2019 How Much Tobacco Do You Chew? None Information not available 04/25/2019 In The 14 Days Before Symptom Onset, Have You Had Close Contact With A Laboratory-confir med COVID-19 While That Case Was Ill? No Information not available 04/23/2021 In The 14 Days Before Symptom Onset, Have You Had Close Contact With A Person Who Is Under Investigation For COVID-19 While That Person Was Ill? No Information not available 04/23/2021 Have You Been To An Area Known To Be High Risk For COVID-19? No Information not available 04/23/2021 Are You Deaf Or Do You Have Serious Difficulty Hearing? No Information not available 04/27/2022 What Type Of Diet Are You Following? REGULAR Information not available 04/27/2022 Live Alone Or With Others? With Others Information not available 11/08/2019 What Was The Date Of Your Most Recent Tobacco Screening? 01/04/2023 Information not available 01/04/2023 What Is Your Relationship Status? Information not available 04/23/2021 Do You Have Smoke And Carbon Monoxide Detectors In Your Home? Yes Information not available 04/23/2021 Are You Passively Exposed To Smoke? No Information no t available 04/23/2021 How Much Tobacco Do You Smoke? No Information not available 04/25/2019 General Stress Level Low Information not available 04/23/2020 Has Tobacco Cessation Counseling Been Provided? No Information not available 04/23/2021 On What Date Was Tobacco Cessation Counseling Provided? 01/04/2023 Information not available 01/04/2023 Sex: Unknown Functional Status Question Answer Note LastModified by Organizat ion Details LastModified Time Do you use any illicit or recreational drugs? No Information not available 04/23/2021 Do you or have you ever used any other forms of tobacco or nicotine? No Information not available 04/23/2021 What is your level of alcohol consumption? None Information not available 04/25/2019 Do you or have you ever used smokeless tobacco? Never used smokeless tobacco Information not available 04/25/2019 Are you currently employed? No Information not available 11/08/2019 Are you able to care for yourself independently? Yes Information not available 11/08/2019 Do you or have you ever used e-cigarettes or vape? Never used electronic cigarettes Information not available 04/25/2019 Mental Status Question Answer Note LastModified by Organization D etails LastModified Time Do you feel stressed (tense, restless, nervous, or anxious, or unable to sleep at night)? [id number] Information not available 04/27/2022 Family History Nothing Reported Notes:Hx of Asthma, Diabetes , Heart Disease, Kidney Disease Medical History Condition Response Coronary Artery Disease N Other N Atrial Fibrillation N High Blood Pressure N Depression N COPD N Blood Clots N Anxiety Disorder N Muscle, Joint, or Bone Problems N Acid Reflux (GERD) N Cancer N Stroke N ADHD N High Cholesterol N Liver Disease N Schizophrenia N Headaches N Thyroid Problems N Kidney or Bladder Problems N GI Problems N Eating Disorder N Skin Problems N Anemia N Heart Attack (DC) N Diabetes N Seizures/Epilepsy N Asthma Y Allergies Y Substance Abuse N Hepatitis N Heart Failure N Osteoporosis N Gynecological History Statement/Question Response Date of Last Mammogram Obstetrics History GPAL:G 0 P 0 0 0 0 Immunizations Vaccine Type Date Status Note Provider Nam e and Address Organization Details Recorded Time influenza, unspecified formulation 9 completed Not Available [facility] 01/05/2023 10:19:26 Td (adult), 2 Lf tetanus toxoid, preservative free, adsorbed 4 completed Not Available [facility] 01/05/2023 10:19:26 pneumococcal polysaccharide PPV23 6 completed Not Available [facility] 01/05/2023 10:19:26 Tdap 3 completed Not Available [facility] 01/05/2023 10:19:26 Influenza, high-dose, trivalent, PF 3 completed Not Available [facility] 01/05/2023 10:19:26 COVID-19, mRNA, LNP-S, PF, 100 mcg/0.5mL dose or 50 mcg/0.25mL dose 1 completed Not Available [facility] 01/05/2023 10:19:26 COVID-19, mRNA, LNP-S, PF, 100 mcg/0.5mL dose or 50 mcg/0.25mL dose 1 completed Not Available [facility] 01/05/2023 10:19:26 influenza, intradermal, quadrivalent, preservative free 1 completed Not Available [facility] 01/05/2023 10:19:26 Past Encounters Encounter ID Performer Location Encounter Start Date Encounter Closed Date Diagnosis/Indication Diagnosis SNOMED-CT Code Diagnosis ICD10 Code Diagnosis IMO Codes Diagnosis Note [id number] Brennan Carlin PA-C [facility] [address] [place] [address] 06/11/2014 10:34:06 06/11/2014 11:25:07 Anxiety 77778166 Asthma 411223744 [id number] Maico Braga MD [facility] [address] [place] [address] 05/07/2015 11:11:14 05/07/2015 11:41:27 Asthma 227761542 J45.909 Anxiety 82078736 F41.9 [id number] Maico Braga MD [facility] [address] [place] [address] 04/30/2016 13:45:10 04/30/2016 15:51:12 Anxiety 72962617 F41.9 Asthma 058508248 J45.90 9 [id number] Maico Braga MD [facility] [address] [place] [address] 05/06/2016 10:18:11 05/06/2016 11:50:37 Diabetes mellitus 31865354 E11.9 [id number] Brennan Carlin PA-C [facility] [address] [place] [address] 07/01/2016 11:17:35 07/01/2016 13:04:09 Pain of oral cavity structure 204507388 K13.79 [id number] Brennan Carlin PA-C [facility] [address] [place] [address] 07/13/2016 09:47:00 07/13/2016 15:02:28 Dyspnea 114154017 R06.09 Mild inter mittent asthma 845533978 J45.20 [id number] Maico Braga MD [facility] [address] [place] [address] 04/26/2017 10:25:51 04/26/2017 14:19:39 Diabetes mellitus 78790119 E11.9 Mild inter mittent asthma 921695255 J45.20 Asthma 584715209 J45.90 9 Generalize d anxiety disorder 93485950 F41.1 [id number] Maico Barga MD [facility] [address] [place] [address] 07/06/2017 15:39:14 07/06/2017 17:06:00 History of asthma 728241124 Z87.09 Anxiety 22985810 F41.1 Acute maxi llary sinusitis 93363700 J01.01 [id number] Brennan Carlin PA-C [facility] [address] [place] [address] 04/25/2018 10:23:35 04/25/2018 11:41:55 Asthma 364677897 J45.30 Anxiety 10021695 F41.1 Adult heal th examination 387226994 Z00.00 [id number] Brennan Carlin PA-C [facility] [address] [place] [address] 04/25/2019 10:12:14 04/25/2019 12:11:07 Anxiety 47637449 F41.1 Asthma 596083502 J45.30 History of asthma 329610 007 Z87.09 Adult heal th examination 937371981 Z00.00 [id number] Brennan Carlin PA-C [facility] [address] [place] [address] 11/08/2019 09:39:59 11/09/2019 07:15:16 Anxiety 17026927 F41.1 Asthma 746289475 J45.30 [id number] Maico Braga MD [facility] [address] [place] [address] 04/23/2020 09:51:01 04/23/2020 12:09:29 Anxiety 20104285 F41.1 Generalize d anxiety disorder 22716581 F41.1 Adult heal th examination 961812570 Z00.00 Asthma 527011203 J45.30 [id number] Brennan Carlin PA-C [facility] [address] [place] [address] 04/23/2021 10:25:36 04/25/2021 07:36:32 Anxiety 30643946 F41.1 Asthma 634881901 J45.30 [id number] Brennan Carlin PA-C [facility] [address] [place] [address] 04/27/2022 10:12:01 04/27/2022 10:44:50 Mixed hyperlipidemia 455632319 E78.2 Asthma 686972974 J45.30 Anxiety 20130219 F41.1 [id number] Maico Braga MD [facility] [address] [place] [address] 12/25/2022 10:09:49 12/29/2022 16:24:46 Asthma 654740433 J45.30 Gastroesop hageal reflux disease without esophagitis 473810404 K21.9 [id number] Brennan Carlin PA-C [facility] [address] [place] [address] 01/04/2023 14:25:43 01/06/2023 14:49:13 Gastroesophageal reflux disease without esophagitis 835386851 K21.9 Atypical chest pain 1025 14989 R07.89 Health Concerns Section Related Observation LastModified by Organization Detai ls LastModified Time None Recorded Concern Status LastModified by Organization Details LastModified Time None Recorded Advance Directives Directive None Recorded Payers Insurance Date Sequence Insurance Name Policy Number Policy Baez Covered Member ID Baez Member ID Guarantor Name 05/29/2023 [place] Ofe I Catherine [id number] Ofe Catherine 05/29/2023 2 [facility] (MEDICARE SUPPLEMENT) Ofe I Catherine [id number] Ofe Catherine 04/25/2019 [place] Ofe I Catherine [id number] Ofe Catherine 05/29/2023 1 [place] Ofe I Catherine [id number] Ofe Catherine Notes Date Note Type Note Provider Name and Address Organization Details Recorded Time 04/23/2020 text/html ROS as noted in the HPI needs labs and refills... Brennan Carlin PA-C Attn: Accounting,[address] [facility], [place], [address], [facility] 04/23/2020 10:35:09 04/23/2021 text/html ROS as noted in the HPI medication follow up...needs labs Brennan Carlin PA-C Attn: Accounting,[address] [facility], [place], [address], [facility] 04/23/2021 11:27:32 04/27/2022 text/html ROS as noted in the HPI needs medication....ch lui up...labs.... Brennan Carlin PA-C Attn: Accounting,[address] [facility], [place], [address], [facility] 04/27/2022 10:40:54 12/25/2022 text/html ROS as noted in the HPI weaned herself off diazepam...went to ER awhile back vs GERD and SOB...was put on pepcid... Brennan Carlin PA-C Attn: Accounting,[address] [facility], [place], [address], [facility] 12/25/2022 10:42:15 01/04/2023 text/html ROS as noted in the HPI quit diazepam in august...GERD worse at night...feels a pulsing in her throat...in november had a flopping feeling in chest..went to ER and was given famotidine...sta rted a probiotic one week later...then had the breakthrough...g iven prilosec...now has gi side effects...sittin g up relieves gerd symptoms... Radha Brody MA [facility], [facility] 01/04/2023 14:53:31 OBGyn Episode No OBEpisode recorded.
--- OUTSIDE RECORDS SUMMARY | 2025-02-16 11:05 | XMS_ITS | Clinical Summary ---
Author Organization [facility] Address [address] [place] [address] Care Team Providers Care Composition Professor Name Role Phone Maico Damon MD Primary Care Provide r Allergies Active Allergy Reactions Criticality Noted Date Comments Hydrocodone Propoxyphene Sulfanilamide Tramadol Medications albuterol HFA (PROAIR HFA) 90 mcg/actuation inhaler inhale 2 puff by inhalation route every 4 - 6 hours as needed 1 3 2 Active salmeterol (SEREVENT DISKUS) 50 mcg/dose diskus inhaler inhale 1 puff by inhalation route 2 times every day in the morning and evening approximately 12 hours apart 1 12 2 Active fluticasone (FLONASE) 50 mcg/actuation nasal spray spray 1 spray by intranasal route 2 times every day in each nostril 1 Bottle 12 2 Active fluticasone propion-salmet luz (ADVAIR DISKUS) 250-50 mcg/dose diskus inhaler Advair Diskus 250 mcg-50 mcg/dose powder for inhalation Active diazePAM (VALIUM) 2 mg tablet diazepam 2 mg tablet take 1/2 tablet by mouth daily Active albuterol HFA (VENTOLIN HFA) 90 mcg/actuation inhaler every 4 hours Active salmeterol (SEREVENT DISKUS) 50 mcg/dose diskus inhaler Serevent Diskus 50 mcg/dose powder for inhalation Inhale 1 puff(s) twice a day by inhalation route for 30 days. 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 Overview (07/24/2016): Carcinoma of nasal septum Osteoporosis 06/24/2012 Overview (07/23/2016): Osteoporosis Willing to be kidney donor 06/18/2011 Overview (07/24/2016): Kidney donor Immunizations Immunization Administration Dates Next Due Influenza, Trivalent, High D ose, Split, Preservative Free, Intramuscular 02/01/2013 Pneumococcal Polysaccharide PPV23 06/17/2005 Td, adsorbed 08/08/2003 Tdap 06/24/2012 Surgical History Surgery Date Site/Laterality Comments OTHER SURGICAL HISTORY (DONOR): L NEPHRECTOMY TUBAL LIGATION Bilateral tubal ligation TONSILLECTOMY Tonsillectomy SINUS SURGERY CAUTERIZE INNER NOSE NEPHRECTOMY LIVING DONOR Medical History Medical History Date Comments Hx Other Medical 1993 (DONOR) Cancer of conchae, nasal (HCC) 2007 Asthma Gastric reflux Osteoarthritis Family History Medical History Relation Name Comments Diabetes type I Brother 1 Diabetes -Ty pe 1; Kidney disease Brother 2 due to diabets Renal disea se; Leukemia Father Cancer -leukemi a; Asthma Mother Asthma; Coronary artery disease Mother Roly nary artery disease, premature; Rheumatic fever Mother Rheumatic fe rick; Migraines Son Migraines; Relation Name Status Comments Brother 1 Brother 2 due to diabets Father Mother Son Social History Tobacco Use Types Packs/Day Years Used Date Smoking Tobacco: Never Alcohol Use Standard Drinks/Week Comments No 0 (1 standard drink = 0.6 oz pur e alcohol) Comments No Sex and Gender Information Value Date Recorded Sex Assigned at Not on file Legal Sex Female 9:48 AM [employer] Gender Identity Not on file Sexual Orientation Not on file Obstetrics History Last Filed Vital Signs Vital Sign Reading Time Taken Comments Blood Pressure 175/75 01/03/2019 7:58 AM CDT Pulse 82 01/03/2019 7:58 AM CDT Temperature 36.2 C (97.1 F) 10/03/2018 11:09 AM CDT Respiratory Rate 16 10/03/2018 11:09 AM CDT Oxygen Saturation 99% 10/03/2018 11:09 AM CDT Inhaled Oxygen Concentration - - Weight 59.9 kg (132 lb) 01/03/2019 7:58 AM CDT Height 170.2 cm (5' 7) 01/03/2019 7:58 AM CDT Body Mass Index 20.67 01/03/2019 7:58 AM CDT Plan of Treatment Not on file Insurance MEDICARE [facility] Care Teams Composition Professor Relationship Specialty Start Date End Date Maico Damon MD [address] [place] [address] PCP - General Family Medicine 01/08/23
[2025-02-16 11:11] LABS: MALB Creatinine Ratio 41.4 mg/g (0-30)
[2025-02-16 11:28] LABS: Alanine Aminotransferase 17 U/L (6-35); Albumin Level 4.6 g/dL (3.5-5.1); Alkaline Phosphatase 89 U/L (38-126); Anion Gap 10 mmol/L (4-12); Aspartate Amino Transferase 23 U/L (14-36); Bilirubin,Total 1.1 mg/dL (0.2-1.3); Blood Urea Nitrogen 23 mg/dL (7-17); Calcium 10.3 mg/dL (8.4-10.2); Carbon Dioxide 28 mmol/L (22-30); Chloride 106 mmol/L (98-107); Estimated Glomerular Filt Rate 49; Glucose 99 mg/dL (65-110); Osmolality Calculated 301 mOsm/kg (285-295); Potassium 4.8 mmol/L (3.4-5.0); Sodium 144 mmol/L (137-145); Total Protein 7.3 g/dL (6.3-8.2)
[2025-02-16 11:58] LABS: Thyroid Stimulating Hormone 0.518 uIU/mL (0.465-4.680)
== END 2025-02-16 10:34 | disposition home or self-care (01) ==
LOC: CHSLAB 10:37
PROVIDERS: PCP Family Medicine; Visit Provider Family Medicine
DX: I10 Essential (primary) hypertension (principal)
CPT/HCPCS: 36415; 80053; 82043; 84443; 85025

== ENCOUNTER 2025-02-17 21:46 | Emergency (ER) | payer MEDICARE, OTHER, SELFPAY ==
[2025-02-17 22:00] VITALS: BP 157/71; PULSE 60; RESP 20; TEMP 36.6; O2SAT 100
[2025-02-17] MEDS: ONDANSETRON HCL ODT 4 MG TABLET PO (22:13)
[2025-02-17] MEDS: MECLIZINE HCL 25 MG TABLET PO (22:14)
[2025-02-17] MEDS: cefTRIAXone 1 GM, LIDOCAINE 1% LOCAL INJ 2.1 ML IM (22:14)
--- NOTE | 2025-02-17 22:40 | ED.EAR ---
HPI - Ear Problem General Chief complaint: Ear Stated complaint: DIZZINESS, EAR PAIN Time Seen by Provider: 02/17/25 22:04 Source: patient and EMS Mode of arrival: EMS Limitations: no limitations History of Present Illness HPI Narrative: This is a 79-year-old female with no significant past medical history recently diagnosed with some sinusitis by her primary care physician is having right ear pressure with some right facial pressure with no fever chills no ear discharge had an episode of vomiting and dizziness earlier today was brought in via EMS there was no chest pain or shortness of breath no belly pain no flank pain no diarrhea constipation. MD Complaint: ear pain Location: right ear Duration: constant Severity: moderate Relieving factors: NDAIDs Exacerbating factors: position of head Context: Reports recent illness Related Data Home Medications ?Medication ?Instructions ?Recorded ?Confirmed ?Last Taken ?Type Serevent 50 mcg inhalation BID 11/23/22 01/05/23 Unknown History Ventolin HFA 90 mcg inhalation DIRECTED 11/23/22 01/05/23 Unknown History cefuroxime axetil 500 mg tablet 500 mg PO DAILY 11/23/22 01/05/23 Unknown History methylprednisolone 4 mg PO DIRECTED 11/23/22 01/05/23 Unknown History Allergies Allergy/AdvReac Type Severity Reaction Status Date / Time acetaminophen (From Vicodin) Allergy Unknown Verified 02/17/25 22:00 amoxicillin (From Augmentin) Allergy Unknown Verified 02/17/25 22:00 cephalexin (From Keflex) Allergy Unknown Verified 02/17/25 22:00 clavulanic acid (From Allergy Unknown Verified 02/17/25 22:00 Augmentin) erythromycin base Allergy Unknown Verified 02/17/25 22:00 fluticasone (From Advair Allergy Unknown Verified 02/17/25 22:00 Diskus) hydrocodone (From Vicodin) Allergy Unknown Verified 02/17/25 22:00 meperidine (From Demerol) Allergy Unknown Verified 02/17/25 22:00 salmeterol (From Advair Allergy Unknown Verified 02/17/25 22:00 Diskus) tramadol Allergy Unknown Verified 02/17/25 22:00 Review of Systems Review of Systems: All systems reviewed & are unremarkable except as noted in HPI and below Exam Const: General: healthy appearing and no acute distress Nutritional Appearance: well nourished and thin Orientation/consciousness: patient oriented x3 Limitations: no limitations HENMT: Other: Right ear dullness and right nasal turbinate congested with frontal and maxillary sinus tenderness to palpation Neck: Neck: normal visual inspection, no meningeal signs and lymphadenopathy Chest: Chest palpation & inspection: normal inspection of the chest Resp: Effort & Inspection: normal respiratory effort Auscultation: clear to auscultation bilaterally Cardio: Rate: regular rate Rhythm: regular rhythm GI: Auscultation: normal bowel sounds Skin: General skin exam: normal color Neuro: General: patient oriented x3, moves all extremities, no meningeal signs and no focal motor deficits Course Course Emergency Course: Medical decision making narrative: The patient was evaluated by myself in the emergency department. History obtained from the patient was an independent historian physical exam performed and witnessed by the nurse. Patient has been on antibiotics and antihistamine along with Flonase given to her by her primary care physician. Patient feels like there is continued pressure in her right ear but all have just started on antibiotics 1 day ago. Patient otherwise vitals are stable. Patient received meclizine and IM injection of ceftriaxone. Repeat assessment Patient doing well on repeat exam no acute distress Symptoms have improved since arrival to the ED Repeat vitals are stable Patient agrees with discussion after shared medical decision-making and with discharge. All questions answered to the patient's satisfaction. Follow-up within 3 to 5 days with her primary care physician. Vital Signs Vital signs: Vital Signs Temperature 36.6 C 02/17/25 22:00 Pulse Rate 60 02/17/25 22:00 Respiratory Rate 20 02/17/25 22:00 Blood Pressure 157/71 H 02/17/25 22:00 Pulse Oximetry 100 02/17/25 22:00 Oxygen Delivery Room Air 02/17/25 22:00 Temperature 36.6 C 02/17/25 22:00 Pulse Rate 60 02/17/25 22:00 Respiratory Rate 20 02/17/25 22:00 Blood Pressure 157/71 H 02/17/25 22:00 Pulse Oximetry 100 02/17/25 22:00 Oxygen Delivery Room Air 02/17/25 22:00 Medical Decision Making Vital Signs Vital Signs: Vital Signs Temperature 36.6 C 02/17/25 22:00 Pulse Rate 60 02/17/25 22:00 Respiratory Rate 20 02/17/25 22:00 Blood Pressure 157/71 H 02/17/25 22:00 Pulse Oximetry 100 02/17/25 22:00 Oxygen Delivery Room Air 02/17/25 22:00 Temperature 36.6 C 02/17/25 22:00 Pulse Rate 60 02/17/25 22:00 Respiratory Rate 20 02/17/25 22:00 Blood Pressure 157/71 H 02/17/25 22:00 Pulse Oximetry 100 02/17/25 22:00 Oxygen Delivery Room Air 02/17/25 22:00 Critical Care Time Critical Care Time Critical Care Time: No Discharge Plan Discharge Clinical Impression: Sinusitis Qualifiers: Sinusitis location: frontal Chronicity: acute Recurrence: non-recurrent Qualified Code(s): J01.10 - Acute frontal sinusitis, unspecified Patient Disposition: Home Condition: Stable Instructions: Antibiotic Form, Sinusitis (ED) Additional Instructions: Advised follow-up with primary care physician within the next 3 to 5 days further evaluation treatment. Patient Language: Macedonian Prescriptions: New meclizine 25 mg tablet 25 mg PO BID PRN (Reason: dizziness) Qty: 14 0RF ondansetron 4 mg tablet,disintegrating 4 mg PO Q6H PRN (Reason: nausea and vomiting) Qty: 14 0RF No Action cefuroxime axetil 500 mg Tablet 500 mg PO DAILY Serevent 50 mcg inhalation BID Ventolin HFA 90 mcg inhalation DIRECTED methylprednisolone 4 mg PO DIRECTED lansoprazole [Prevacid] 30 mg capsule,delayed release(DR/EC) 30 mg PO DAILY Qty: 30 0RF Follow-up/Referrals: Maico Damon MD [Primary Care Provider, Internal Medicine] Time of Disposition: 22:45
[2025-02-17 23:15] VITALS: BP 135/71; PULSE 61; RESP 18; TEMP 36.6; O2SAT 97
== END 2025-02-17 23:15 | disposition home or self-care (01) ==
PROVIDERS: Emergency Provider Emergency Medicine; PCP Family Medicine
DX: J01.10 Acute frontal sinusitis, unspecified (principal)
CPT/HCPCS: 96372; 99283; A9270; J0696; J2003

== ENCOUNTER 2025-03-14 13:10 | Outpatient (CLI) | payer MEDICARE, OTHER, SELFPAY ==
--- NOTE | ~2025-03-14 | CT_ITS ---
EXAMINATION: CT sinus wo con COMPARISON: None HISTORY: J32.9 - Chronic sinusitis, unspecified TECHNIQUE: Axial images were obtained without IV contrast. Sagittal, coronal reconstruction images were obtained from the axial views. CT scan performed using dose optimization techniques including the following automated exposure control; adjustment of mA and/or kV; use of iterative reconstruction technique. Automatic exposure control was used to reduce radiation dose. Permanent radiation dose record is archived to PACS. FINDINGS: Visualized brain parenchyma appears unremarkable. The optic globes appear unremarkable. The soft tissues appear unremarkable Frontal sinuses are unremarkable. Minimal mucosal thickening in the ethmoidal air cells. Maxillary sinuses unremarkable. The ostiomeatal complexes are patent. Nasal septum is deviated to the right. No significant narrowing of the nasal cavities or thickening of the turbinates. The sphenoid sinuses appear unremarkable. There is no osseous destruction or wall thickening appreciated. IMPRESSION: Sinusitis detailed above Reviewed, dictated and finalized at location P. ETICIST IMPRESSION: Sinusitis detailed above
--- OUTSIDE RECORDS SUMMARY | 2025-03-14 13:18 | XMS_ITS | Clinical Summary ---
Author Organization [facility] Address [address] [place] [address] Care Team Providers Care New Vehicle Sales Consultant Name Role Phone Maico Damon MD Primary [...] on file Legal Sex Female 9:48 AM [employer] Gender Identity Not on file Sexual Orientation Not on file Last Filed Vital Signs Vital Sign Reading [...] of Treatment Not on file Insurance MEDICARE [facility] Care Teams New Vehicle Sales Consultant Relationship Specialty Start Date End Date Maico Damon MD [address] [place] [address] PCP - General Family Medicine 01/08/23
== END 2025-03-14 13:11 | disposition home or self-care (01) ==
LOC: CHSIMG 13:10
PROVIDERS: PCP Family Medicine; Visit Provider Otolaryngology
DX: J32.9 Chronic sinusitis, unspecified (principal)
CPT/HCPCS: 70486

== ENCOUNTER 2025-04-04 08:48 | Outpatient (CLI) | payer MEDICARE, OTHER, SELFPAY | END 2025-04-04 08:49 | disposition home or self-care (01) | LOC: ANHBWCAUD 08:49 | PROVIDERS: PCP Family Medicine; Visit Provider Otolaryngology | DX: H93.11 Tinnitus, right ear (principal); H90.3 Sensorineural hearing loss, bilateral; H61.23 Impacted cerumen, bilateral | CPT/HCPCS: 92557; 92567 ==